=== PATIENT | male | born 1940 | race Caucasian/White ===

== ENCOUNTER 2017-07-22 22:42 | Emergency (ER) | payer MEDICARE ==
[~2017-07-22] VITALS: Ht 170.2 cm; Wt 72.6 kg
[2017-07-22] MEDS ORDERED: FLOMAX0.4 MG PO (22:52)
[2017-07-22] MEDS ORDERED: SIMVASTATIN20 MG PO (22:58)
[2017-07-22] MEDS ORDERED: TOPROL XL25 MG PO (22:58)
[2017-07-22] MEDS ORDERED: LISINOPRIL20 MG PO (22:59)
[2017-07-23] MEDS ORDERED: WARFARIN SODIUM5 MG PO (08:32)
== END 2017-07-22 23:38 | disposition home or self-care (01) ==
LOC: ED 22:42
DX: R33.9 Retention of urine, unspecified (principal); Z88.0 Allergy status to penicillin; Z79.899 Other long term (current) drug therapy
CPT/HCPCS: 81001; 99283

== ENCOUNTER 2017-07-23 07:53 | Emergency (ER) | payer MEDICARE ==
[~2017-07-23] VITALS: Ht 170.2 cm; Wt 72.6 kg
[~2017-07-23 07:53] MED LIST: FLOMAX0.4 MG PO; LISINOPRIL20 MG PO; SIMVASTATIN20 MG PO; TOPROL XL25 MG PO
[2017-07-23] MEDS ORDERED: WARFARIN SODIUM5 MG PO (08:32)
== END 2017-07-23 12:10 | disposition home or self-care (01) ==
LOC: ED 07:53
PROC: 0T9B70Z Drainage of Bladder with Drainage Device, Via Natural or Artificial Opening (ICD-10-PCS; principal; 2017-07-23)
PROC: 4A0D7LZ Measurement of Urinary Volume, Via Natural or Artificial Opening (ICD-10-PCS; principal; 2017-07-23)
DX: T83.83XA Hemorrhage due to genitourinary prosthetic devices, implants and grafts, initial encounter (principal); I48.91 Unspecified atrial fibrillation; E78.00 Pure hypercholesterolemia, unspecified; Z87.891 Personal history of nicotine dependence; Z88.0 Allergy status to penicillin; Z79.899 Other long term (current) drug therapy; Z79.01 Long term (current) use of anticoagulants
CPT/HCPCS: 36415; 51702; 51798; 80053; 85025; 85610; 99284